=== PATIENT | female | born 1965 | race Caucasian/White ===

== ENCOUNTER 2020-04-27 12:22 | Inpatient (IN) | payer MEDICAID ==
[~2020-04-27] VITALS: Ht 165.1 cm; Wt 89.0 kg
[2020-04-27] MEDS ORDERED: NOREPINEPHRINE 8MG/250ML PMX 250 ML IV ONE (13:00)
[2020-04-27] MEDS ORDERED: MIDAZOLAM HCL 100 MG in DEXT 5% WATER 80 ML IV ONE ×2 (13:00→13:30)
[2020-04-27] MEDS ORDERED: SODIUM CHLORIDE 0.9% 1,000 ML IV ONE (13:00)
[2020-04-27] MEDS ORDERED: ETOMIDATE 2MG/ML 10ML VIAL IV ONE ×2 (13:00)
[2020-04-27] MEDS ORDERED: SUCCINYLCHOLINE CHLORIDE 200MG/10ML IV ONE (13:00)
[2020-04-27 13:07] LABS: HEMATOCRIT. 39.9 % (36.0-48.0); HEMOGLOBIN. 13.3 g/dL (12.0-16.0); MEAN CORPUSCULAR HEMOGLOBIN 31.8 pg (28.0-32.0); MEAN CORPUSCULAR VOLUME 95.3 fL (81.0-99.0); MEAN PLATELET VOLUME 8.2 fl (7.4-10.4); PLATELET 366 x1000/uL (130-400); RED BLOOD CELL COUNT 4.19 mill/uL (4.2-5.4); RED CELL DISTRIBUTION WIDTH 13.9 % (11.6-14.6)
[2020-04-27 13:14] LABS: CHLORIDE 108 mEq/L (98-107)
[2020-04-27 13:22] LABS: CREATINE KINASE 722 IU/L (26-192)
[2020-04-27] MEDS ORDERED: NOREPINEPHRINE 8 MG in DEXTROSE 5% WATER 250 ML IV ONE (13:30)
[2020-04-27 13:53] LABS: PLATELET ESTIMATE NORMAL
[2020-04-27] MEDS ORDERED: NITROGLYCERIN OINT 1GM/INCH UDPKT TD NR (14:30)
[2020-04-27] MEDS ORDERED: FUROSEMIDE 40MG/4ML VIAL IVP NR (14:30)
[2020-04-27] MEDS ORDERED: ASPIRIN 600MG SUPP PR ONE (15:45)
[2020-04-27] MEDS ORDERED: PIPERACILLIN/TAZOBACTAM 3.375GM/50ML PREMIX IV ONE (16:00)
[2020-04-27 16:08] LABS: INR 1.1; PROTHROMBIN TIME 11.4 sec (9.6-11.0)
[2020-04-27] MEDS ORDERED: PIPERACILLIN/TAZ 3.375G PREMIX 50 ML IV NR (17:00)
[2020-04-27] MEDS ORDERED: ENOXAPARIN 60MG/0.6ML SYR SUBCUT NR (17:00)
[2020-04-27] MEDS ORDERED: PANTOPRAZOLE SODIUM 40 MG/VIAL IV ONE (18:00)
[2020-04-27] MEDS ORDERED: CEFTRIAXONE 1 G PREMIX 50 ML IV NR (18:45)
[2020-04-27] MEDS ORDERED: ONDANSETRON HCL 4MG/2ML INJ IV PRN (18:45)
[2020-04-27] MEDS ORDERED: AZITHROMYCIN 500 MG in DEXT 5% WATER 250 ML IV NR (18:45)
[2020-04-27 18:53] LABS: CLARITY URINE TURBID (CLEAR); COLOR URINE ORANGE (YELLOW); KETONES URINE TRACE (NEGATIVE); LEUKOCYTE ESTERASE URINE 2+ (NEGATIVE); NITRITE URINE NEGATIVE (NEGATIVE); OCCULT BLOOD URINE 3+ (NEGATIVE); PROTEIN URINE 3+ (NEGATIVE); SPECIFIC GRAVITY URINE 1.019 (1.005-1.030)
[2020-04-27] MEDS ORDERED: MIDAZOLAM HCL 100 MG in DEXT 5% WATER 80 ML IV PRN (21:15)
[2020-04-27] MEDS ORDERED: FENTANYL CITRATE/PF 2,500 MCG in SODIUM CHLORIDE 0.9% 200 ML IV PRN (21:15)
[2020-04-27] MEDS ORDERED: IPRATROPIUM/ALBUTEROL 0.5-3(2.5)MG/3ML NEB HHN PRN (21:15)
[2020-04-28 00:15] LABS: BG BASE EXCESS -4.6 mmol/L (-2.0-2.0); BG CARBOXYHEMOGLOBIN 0.3 % (0.5-1.5); BG DEOXYHEMOGLOBIN 2.3 % (0.0-5.0); BG FRACTION INSPIRED OXYGEN 100; BG HCO3 ACT 18.6 mmol/L (22.0-26.0); BG METHEMOGLOBIN 0.2 % (0.0-1.5); BG OXYGEN SATURATION 97.7 % (92.0-98.5); BG OXYHEMOGLOBIN 97.2 % (94.0-97.0); BG PCO2 29.2 mmHg (35.0-45.0); BG PH 7.423 (7.350-7.450); BG PO2 117.3 mmHg (75.0-100.0); BG SAMPLE SITE LEFT RADIAL; BG VENT MODE VENT - AC
[2020-04-28] MEDS: DEXAMETHASONE 10 MG/ML VIAL IV SCH ×2 (00:21→11:25)
[2020-04-28] MEDS: PANTOPRAZOLE SODIUM 40 MG/VIAL IV SCH ×2 (00:21→22:04)
[2020-04-28] MEDS ORDERED: MIDAZOLAM HCL 100 MG in DEXT 5% WATER 80 ML IV PRN (03:00)
[2020-04-28 05:16] LABS: HEMATOCRIT. 37.9 % (36.0-48.0); HEMOGLOBIN. 12.8 g/dL (12.0-16.0); MEAN CORPUSCULAR HEMOGLOBIN 31.1 pg (28.0-32.0); MEAN CORPUSCULAR VOLUME 92.4 fL (81.0-99.0); MEAN PLATELET VOLUME 8.5 fl (7.4-10.4); PLATELET 302 x1000/uL (130-400); RED CELL DISTRIBUTION WIDTH 13.7 % (11.6-14.6)
[2020-04-28 05:20] LABS: CHLORIDE 110 mEq/L (98-107)
[2020-04-28 05:32] LABS: LDL CHOLESTEROL 90 mg/dL (5-100)
[2020-04-28 05:33] LABS: CREATINE KINASE 863 IU/L (26-192)
[2020-04-28 05:34] LABS: HDL CHOLESTEROL 42 mg/dL (40-59)
[2020-04-28 08:46] LABS: BG BASE EXCESS 7.6 mmol/L (-2.0-2.0); BG CARBOXYHEMOGLOBIN 0.8 % (0.5-1.5); BG DEOXYHEMOGLOBIN 1.4 % (0.0-5.0); BG FRACTION INSPIRED OXYGEN 100; BG HCO3 ACT 31.6 mmol/L (22.0-26.0); BG METHEMOGLOBIN 0.1 % (0.0-1.5); BG OXYGEN SATURATION 98.6 % (92.0-98.5); BG OXYHEMOGLOBIN 97.7 % (94.0-97.0); BG PCO2 41.8 mmHg (35.0-45.0); BG PH 7.496 (7.350-7.450); BG PO2 123.6 mmHg (75.0-100.0); BG SAMPLE SITE RIGHT RADIAL; BG TOTAL HEMOGLOBIN 8.5 g/dL (12.0-18.0); BG VENT MODE VENT - AC
[2020-04-28 08:52] LABS: C REACTIVE PROTEIN QUANT > 190.0 mg/L (0.0-3.0)
[2020-04-28] MEDS: IPRATROPIUM/ALBUTEROL 0.5-3(2.5)MG/3ML NEB HHN SCH ×4 (09:00→20:29)
[2020-04-28] MEDS ORDERED: FUROSEMIDE 40MG/4ML VIAL IVP NR (09:30)
[2020-04-28 11:04] LABS: PLATELET ESTIMATE NORMAL
[2020-04-28] MEDS: DEXT 5%/0.45% NACL 1000ML 1,000 ML IV SCH ×2 (11:26→12:05)
[2020-04-28] MEDS ORDERED: ENOXAPARIN 60MG/0.6ML SYR SUBCUT SCH (14:00)
[2020-04-28] MEDS: CEFTRIAXONE 1,000 MG in DEXTROSE 5% WATER 50 ML IV SCH (14:25)
[2020-04-28] MEDS: AZITHROMYCIN 500MG in DEXTROSE 5% WATER 250ML IV SCH (14:26)
[2020-04-29] MEDS: IPRATROPIUM/ALBUTEROL 0.5-3(2.5)MG/3ML NEB HHN SCH ×6 (00:43→20:52)
[2020-04-29 06:09] LABS: HEMATOCRIT. 33.1 % (36.0-48.0); HEMOGLOBIN. 11.6 g/dL (12.0-16.0); MEAN CORPUSCULAR VOLUME 91.7 fL (81.0-99.0); PLATELET 283 x1000/uL (130-400); RED BLOOD CELL COUNT 3.61 mill/uL (4.2-5.4); RED CELL DISTRIBUTION WIDTH 13.3 % (11.6-14.6)
[2020-04-29 06:12] LABS: CHLORIDE 109 mEq/L (98-107)
[2020-04-29] MEDS: DEXT 5%/0.45% NACL 1000ML 1,000 ML IV SCH (08:00)
[2020-04-29 08:22] LABS: NUCLEATED RED BLOOD CELLS 4 /100 WBC; PLATELET ESTIMATE NORMAL
[2020-04-29 11:04] LABS: BG BASE EXCESS 0.9 mmol/L (-2.0-2.0); BG CARBOXYHEMOGLOBIN 0.1 % (0.5-1.5); BG DEOXYHEMOGLOBIN 3.2 % (0.0-5.0); BG FRACTION INSPIRED OXYGEN 80; BG HCO3 ACT 24.3 mmol/L (22.0-26.0); BG METHEMOGLOBIN 0.2 % (0.0-1.5); BG OXYGEN SATURATION 96.8 % (92.0-98.5); BG OXYHEMOGLOBIN 96.5 % (94.0-97.0); BG PO2 92.4 mmHg (75.0-100.0); BG SAMPLE SITE RIGHT RADIAL; BG TOTAL HEMOGLOBIN 12.6 g/dL (12.0-18.0); BG TOTAL RESPIRATORY RATE 28 b/min; BG VENT MODE VENT - AC
[2020-04-29] MEDS: ASPIRIN 81MG TABLET PO SCH (11:39)
[2020-04-29] MEDS ORDERED: CEFTRIAXONE SODIUM 1 G/VIAL ONE (15:08)
[2020-04-29] MEDS: DEXAMETHASONE 10 MG/ML VIAL IV SCH (15:09)
[2020-04-29] MEDS: CEFTRIAXONE 1,000 MG in DEXTROSE 5% WATER 50 ML IV SCH (15:09)
[2020-04-29] MEDS: ENOXAPARIN 60MG/0.6ML SYR SUBCUT SCH (19:36)
[2020-04-29] MEDS: PANTOPRAZOLE SODIUM 40 MG/VIAL IV SCH (21:00)
[2020-04-30] VITALS (58 sets, daily range): BP systolic 115–156; BP diastolic 69–142
[2020-04-30] MEDS: IPRATROPIUM/ALBUTEROL 0.5-3(2.5)MG/3ML NEB HHN SCH ×6 (00:16→20:34)
[2020-04-30] MEDS: DEXT 5%/0.45% NACL 1000ML 1,000 ML IV SCH ×2 (00:30→15:44)
[2020-04-30 06:17] LABS: HEMATOCRIT. 32.7 % (36.0-48.0); HEMOGLOBIN. 11.3 g/dL (12.0-16.0); MEAN CORPUSCULAR HEMOGLOBIN 31.8 pg (28.0-32.0); MEAN CORPUSCULAR VOLUME 92.4 fL (81.0-99.0); MEAN PLATELET VOLUME 8.7 fl (7.4-10.4); PLATELET 303 x1000/uL (130-400); RED BLOOD CELL COUNT 3.54 mill/uL (4.2-5.4); RED CELL DISTRIBUTION WIDTH 13.6 % (11.6-14.6)
[2020-04-30 06:22] LABS: CHLORIDE 110 mEq/L (98-107)
[2020-04-30 08:44] LABS: PLATELET ESTIMATE NORMAL
[2020-04-30] MEDS: ASPIRIN 81MG TABLET PO SCH (09:00)
[2020-04-30] MEDS: ENOXAPARIN 60MG/0.6ML SYR SUBCUT SCH (09:06)
[2020-04-30] MEDS: DEXAMETHASONE 10 MG/ML VIAL IV SCH (09:06)
[2020-04-30 09:28] LABS: BG BASE EXCESS -1.7 mmol/L (-2.0-2.0); BG CARBOXYHEMOGLOBIN 0.3 % (0.5-1.5); BG DEOXYHEMOGLOBIN 2.3 % (0.0-5.0); BG FRACTION INSPIRED OXYGEN 70; BG HCO3 ACT 22.2 mmol/L (22.0-26.0); BG METHEMOGLOBIN 0.2 % (0.0-1.5); BG OXYGEN SATURATION 97.7 % (92.0-98.5); BG OXYHEMOGLOBIN 97.2 % (94.0-97.0); BG PCO2 34.8 mmHg (35.0-45.0); BG PH 7.423 (7.350-7.450); BG PO2 110.7 mmHg (75.0-100.0); BG SAMPLE SITE RIGHT RADIAL; BG TOTAL HEMOGLOBIN 11.6 g/dL (12.0-18.0); BG VENT MODE VENT - AC
[2020-04-30] MEDS: CEFTRIAXONE 1,000 MG in DEXTROSE 5% WATER 50 ML IV SCH (14:51)
[2020-04-30] MEDS: ENOXAPARIN 100MG/ML SYR SUBCUT SCH (15:44)
[2020-04-30] MEDS: PANTOPRAZOLE SODIUM 40 MG/VIAL IV SCH (20:37)
[2020-04-30] MEDS: AZITHROMYCIN 500MG in DEXTROSE 5% WATER 250ML IV SCH (23:23)
[2020-05-01] VITALS (80 sets, daily range): BP systolic 111–143; BP diastolic 66–93
[2020-05-01] MEDS: IPRATROPIUM/ALBUTEROL 0.5-3(2.5)MG/3ML NEB HHN SCH ×6 (00:17→20:16)
[2020-05-01] MEDS: ENOXAPARIN 100MG/ML SYR SUBCUT SCH ×2 (01:18→14:29)
[2020-05-01 05:16] LABS: HEMATOCRIT. 35.1 % (36.0-48.0); HEMOGLOBIN. 11.8 g/dL (12.0-16.0); MEAN CORPUSCULAR HEMOGLOBIN 31.7 pg (28.0-32.0); MEAN CORPUSCULAR VOLUME 94.2 fL (81.0-99.0); MEAN PLATELET VOLUME 8.4 fl (7.4-10.4); PLATELET 321 x1000/uL (130-400); RED BLOOD CELL COUNT 3.72 mill/uL (4.2-5.4); RED CELL DISTRIBUTION WIDTH 13.6 % (11.6-14.6)
[2020-05-01 05:32] LABS: CHLORIDE 109 mEq/L (98-107)
[2020-05-01] MEDS: DEXT 5%/0.45% NACL 1000ML 1,000 ML IV SCH ×2 (06:01→22:31)
[2020-05-01 08:00] LABS: PLATELET ESTIMATE NORMAL
[2020-05-01] MEDS: ASPIRIN 81MG TABLET PO SCH (09:20)
[2020-05-01] MEDS: DEXAMETHASONE 10 MG/ML VIAL IV SCH (09:20)
[2020-05-01 09:22] LABS: BG BASE EXCESS -0.5 mmol/L (-2.0-2.0); BG CARBOXYHEMOGLOBIN 0.3 % (0.5-1.5); BG DEOXYHEMOGLOBIN 1.6 % (0.0-5.0); BG FRACTION INSPIRED OXYGEN 65; BG HCO3 ACT 24.1 mmol/L (22.0-26.0); BG METHEMOGLOBIN 0.3 % (0.0-1.5); BG OXYGEN SATURATION 98.4 % (92.0-98.5); BG OXYHEMOGLOBIN 97.8 % (94.0-97.0); BG PCO2 39.5 mmHg (35.0-45.0); BG PH 7.403 (7.350-7.450); BG PO2 170.9 mmHg (75.0-100.0); BG SAMPLE SITE RIGHT RADIAL; BG TOTAL HEMOGLOBIN 11.7 g/dL (12.0-18.0); BG TOTAL RESPIRATORY RATE 21 b/min; BG VENT MODE VENT - AC
[2020-05-01] MEDS ORDERED: FLUMAZENIL 0.1 MG/ML 5ML VIAL IV NR ×2 (12:00→12:28)
[2020-05-01] MEDS ORDERED: FLUMAZENIL 0.1 MG/ML 5ML VIAL IV PRN (12:30)
[2020-05-01] MEDS: CEFTRIAXONE 1,000 MG in DEXTROSE 5% WATER 50 ML IV SCH (12:34)
[2020-05-01] MEDS: AZITHROMYCIN 500MG in DEXTROSE 5% WATER 250ML IV SCH (15:30)
[2020-05-01] MEDS: FENTANYL CITRATE 2,500 MCG in SODIUM CHLORIDE 0.9% 200 ML IV PRN (16:42)
[2020-05-01] MEDS: PANTOPRAZOLE SODIUM 40 MG/VIAL IV SCH (21:09)
[2020-05-02] VITALS (95 sets, daily range): BP systolic 109–150; BP diastolic 55–107
[2020-05-02] MEDS: IPRATROPIUM/ALBUTEROL 0.5-3(2.5)MG/3ML NEB HHN SCH ×7 (00:09→23:59)
[2020-05-02] MEDS: ENOXAPARIN 100MG/ML SYR SUBCUT SCH ×2 (02:56→13:32)
[2020-05-02 04:52] LABS: HEMATOCRIT. 33.6 % (36.0-48.0); HEMOGLOBIN. 11.5 g/dL (12.0-16.0); MEAN CORPUSCULAR HEMOGLOBIN 31.9 pg (28.0-32.0); MEAN CORPUSCULAR VOLUME 93.6 fL (81.0-99.0); MEAN PLATELET VOLUME 8.6 fl (7.4-10.4); PLATELET 332 x1000/uL (130-400); RED BLOOD CELL COUNT 3.59 mill/uL (4.2-5.4); RED CELL DISTRIBUTION WIDTH 13.5 % (11.6-14.6)
[2020-05-02 04:56] LABS: CHLORIDE 108 mEq/L (98-107)
[2020-05-02] MEDS: ASPIRIN 81MG TABLET PO SCH (09:01)
[2020-05-02] MEDS: DEXAMETHASONE 10 MG/ML VIAL IV SCH (09:01)
[2020-05-02] MEDS: CHOLECALCIFEROL (D3) 1000 UNIT TABLET PO SCH (09:01)
[2020-05-02 09:09] LABS: BG BASE EXCESS 1.4 mmol/L (-2.0-2.0); BG CARBOXYHEMOGLOBIN 0.3 % (0.5-1.5); BG FRACTION INSPIRED OXYGEN 50; BG METHEMOGLOBIN 0.1 % (0.0-1.5); BG OXYHEMOGLOBIN 97.6 % (94.0-97.0); BG PO2 124.5 mmHg (75.0-100.0); BG SAMPLE SITE LEFT RADIAL; BG TOTAL HEMOGLOBIN 11.8 g/dL (12.0-18.0); BG VENT MODE VENT - AC
[2020-05-02] MEDS: CEFTRIAXONE 1,000 MG in DEXTROSE 5% WATER 50 ML IV SCH (13:32)
[2020-05-02 13:49] LABS: PLATELET ESTIMATE NORMAL
[2020-05-02] MEDS: DEXT 5%/0.45% NACL 1000ML 1,000 ML IV SCH (15:07)
[2020-05-02] MEDS: PANTOPRAZOLE SODIUM 40 MG/VIAL IV SCH (21:02)
[2020-05-02] MEDS: FENTANYL CITRATE 2,500 MCG in SODIUM CHLORIDE 0.9% 200 ML IV PRN (22:11)
[2020-05-03] VITALS (95 sets, daily range): BP systolic 102–127; BP diastolic 53–84
[2020-05-03] MEDS: ENOXAPARIN 100MG/ML SYR SUBCUT SCH (02:06)
[2020-05-03] MEDS: IPRATROPIUM/ALBUTEROL 0.5-3(2.5)MG/3ML NEB HHN SCH ×5 (04:14→20:22)
[2020-05-03 05:21] LABS: HEMATOCRIT. 34.2 % (36.0-48.0); HEMOGLOBIN. 11.5 g/dL (12.0-16.0); MEAN CORPUSCULAR HEMOGLOBIN 31.3 pg (28.0-32.0); MEAN PLATELET VOLUME 8.3 fl (7.4-10.4); PLATELET 357 x1000/uL (130-400); RED BLOOD CELL COUNT 3.68 mill/uL (4.2-5.4); RED CELL DISTRIBUTION WIDTH 13.1 % (11.6-14.6)
[2020-05-03 05:26] LABS: CHLORIDE 103 mEq/L (98-107)
[2020-05-03] MEDS: DEXT 5%/0.45% NACL 1000ML 1,000 ML IV SCH (08:05)
[2020-05-03] MEDS: ASPIRIN 81MG TABLET PO SCH (09:20)
[2020-05-03] MEDS: DEXAMETHASONE 10 MG/ML VIAL IV SCH (10:24)
[2020-05-03] MEDS: CHOLECALCIFEROL (D3) 1000 UNIT TABLET PO SCH (10:25)
[2020-05-03 10:27] LABS: PLATELET ESTIMATE NORMAL
[2020-05-03] MEDS: PANTOPRAZOLE SODIUM 40 MG/VIAL IV SCH (21:14)
[2020-05-03] MEDS: FENTANYL CITRATE 2,500 MCG in SODIUM CHLORIDE 0.9% 200 ML IV PRN (21:43)
[2020-05-04] VITALS (89 sets, daily range): BP systolic 105–147; BP diastolic 57–102
[2020-05-04] MEDS: IPRATROPIUM/ALBUTEROL 0.5-3(2.5)MG/3ML NEB HHN SCH ×6 (00:22→20:40)
[2020-05-04] MEDS: DEXT 5%/0.45% NACL 1000ML 1,000 ML IV SCH ×2 (01:36→18:26)
[2020-05-04] MEDS: ENOXAPARIN 100MG/ML SYR SUBCUT SCH ×2 (02:20→14:27)
[2020-05-04 04:28] LABS: HEMATOCRIT. 33.9 % (36.0-48.0); HEMOGLOBIN. 11.8 g/dL (12.0-16.0); MEAN CORPUSCULAR HEMOGLOBIN 32.1 pg (28.0-32.0); MEAN CORPUSCULAR VOLUME 92.4 fL (81.0-99.0); MEAN PLATELET VOLUME 8.3 fl (7.4-10.4); PLATELET 385 x1000/uL (130-400); RED BLOOD CELL COUNT 3.66 mill/uL (4.2-5.4); RED CELL DISTRIBUTION WIDTH 13.2 % (11.6-14.6)
[2020-05-04 04:33] LABS: CHLORIDE 101 mEq/L (98-107)
[2020-05-04] MEDS: FENTANYL CITRATE 2,500 MCG in SODIUM CHLORIDE 0.9% 200 ML IV PRN ×3 (06:03→18:27)
[2020-05-04] MEDS: DEXAMETHASONE 10 MG/ML VIAL IV SCH (09:05)
[2020-05-04] MEDS: CHOLECALCIFEROL (D3) 1000 UNIT TABLET PO SCH (09:05)
[2020-05-04] MEDS: ASPIRIN 81MG TABLET PO SCH (09:05)
[2020-05-04 09:54] LABS: BG BASE EXCESS 7.3 mmol/L (-2.0-2.0); BG CARBOXYHEMOGLOBIN 0.4 % (0.5-1.5); BG DEOXYHEMOGLOBIN 2.1 % (0.0-5.0); BG FRACTION INSPIRED OXYGEN 40; BG HCO3 ACT 33.1 mmol/L (22.0-26.0); BG METHEMOGLOBIN 0.3 % (0.0-1.5); BG OXYGEN SATURATION 97.9 % (92.0-98.5); BG OXYHEMOGLOBIN 97.2 % (94.0-97.0); BG PCO2 52.7 mmHg (35.0-45.0); BG PH 7.416 (7.350-7.450); BG PO2 104.9 mmHg (75.0-100.0); BG SAMPLE SITE RIGHT RADIAL; BG TOTAL HEMOGLOBIN 11.9 g/dL (12.0-18.0); BG TOTAL RESPIRATORY RATE 13 b/min; BG VENT MODE VENT - AC
[2020-05-04 12:19] LABS: NUCLEATED RED BLOOD CELLS 2 /100 WBC
[2020-05-04 12:20] LABS: PLATELET ESTIMATE NORMAL
[2020-05-04] MEDS: PANTOPRAZOLE SODIUM 40 MG/VIAL IV SCH (21:05)
[2020-05-05] VITALS (44 sets, daily range): BP systolic 97–154; BP diastolic 52–100
[2020-05-05] MEDS: IPRATROPIUM/ALBUTEROL 0.5-3(2.5)MG/3ML NEB HHN SCH ×4 (00:21→20:34)
[2020-05-05] MEDS: ENOXAPARIN 100MG/ML SYR SUBCUT SCH ×3 (01:19→23:14)
[2020-05-05] MEDS: FENTANYL CITRATE 2,500 MCG in SODIUM CHLORIDE 0.9% 200 ML IV PRN ×2 (03:38→19:32)
[2020-05-05 08:53] LABS: BG BASE EXCESS 5.2 mmol/L (-2.0-2.0); BG CARBOXYHEMOGLOBIN 0.3 % (0.5-1.5); BG DEOXYHEMOGLOBIN 2.1 % (0.0-5.0); BG FRACTION INSPIRED OXYGEN 40; BG HCO3 ACT 30.4 mmol/L (22.0-26.0); BG METHEMOGLOBIN 0.3 % (0.0-1.5); BG OXYGEN SATURATION 97.9 % (92.0-98.5); BG OXYHEMOGLOBIN 97.3 % (94.0-97.0); BG PCO2 46.8 mmHg (35.0-45.0); BG PO2 109.3 mmHg (75.0-100.0); BG SAMPLE SITE RIGHT RADIAL; BG TOTAL HEMOGLOBIN 12.5 g/dL (12.0-18.0); BG TOTAL RESPIRATORY RATE 14 b/min; BG VENT MODE VENT - AC
[2020-05-05] MEDS: DEXAMETHASONE 10 MG/ML VIAL IV SCH (09:36)
[2020-05-05] MEDS: CHOLECALCIFEROL (D3) 1000 UNIT TABLET PO SCH (09:36)
[2020-05-05] MEDS: ASPIRIN 81MG TABLET PO SCH (09:36)
[2020-05-05] MEDS: DEXT 5%/0.45% NACL 1000ML 1,000 ML IV SCH (09:37)
[2020-05-05] MEDS ORDERED: LORAZEPAM 2MG/ML CPJ IV PRN (12:00)
[2020-05-05 13:25] LABS: BG BASE EXCESS 6.5 mmol/L (-2.0-2.0); BG CARBOXYHEMOGLOBIN 0.7 % (0.5-1.5); BG DEOXYHEMOGLOBIN 4.1 % (0.0-5.0); BG FRACTION INSPIRED OXYGEN 40; BG HCO3 ACT 30.6 mmol/L (22.0-26.0); BG METHEMOGLOBIN 0.2 % (0.0-1.5); BG OXYGEN SATURATION 95.9 % (92.0-98.5); BG PCO2 41.5 mmHg (35.0-45.0); BG PH 7.485 (7.350-7.450); BG PO2 74.2 mmHg (75.0-100.0); BG SAMPLE SITE LEFT RADIAL; BG TOTAL HEMOGLOBIN 13.4 g/dL (12.0-18.0); BG TOTAL RESPIRATORY RATE 25 b/min; BG VENT MODE VENT - CPAP
[2020-05-05] MEDS: PANTOPRAZOLE SODIUM 40 MG/VIAL IV SCH (20:51)
[2020-05-06] VITALS (58 sets, daily range): BP systolic 89–141; BP diastolic 51–87
[2020-05-06] MEDS: IPRATROPIUM/ALBUTEROL 0.5-3(2.5)MG/3ML NEB HHN SCH ×3 (00:14→07:48)
[2020-05-06] MEDS ORDERED: LORAZEPAM 2MG/ML CPJ IV PRN (08:30)
[2020-05-06] MEDS ORDERED: LORAZEPAM 2MG/ML CPJ IV NR (08:45)
[2020-05-06] MEDS: ENOXAPARIN 100MG/ML SYR SUBCUT SCH ×2 (09:00→21:04)
[2020-05-06] MEDS: ASPIRIN 81MG TABLET PO SCH (09:00)
[2020-05-06] MEDS: CHOLECALCIFEROL (D3) 1000 UNIT TABLET PO SCH (09:00)
[2020-05-06 10:07] LABS: BG BASE EXCESS 4.7 mmol/L (-2.0-2.0); BG CARBOXYHEMOGLOBIN 0.1 % (0.5-1.5); BG DEOXYHEMOGLOBIN 3.2 % (0.0-5.0); BG FRACTION INSPIRED OXYGEN 40; BG HCO3 ACT 27.3 mmol/L (22.0-26.0); BG METHEMOGLOBIN 0.3 % (0.0-1.5); BG OXYGEN SATURATION 96.8 % (92.0-98.5); BG OXYHEMOGLOBIN 96.4 % (94.0-97.0); BG PCO2 33.9 mmHg (35.0-45.0); BG PH 7.524 (7.350-7.450); BG SAMPLE SITE LEFT RADIAL; BG TOTAL RESPIRATORY RATE 25 b/min; BG VENT MODE VENT - CPAP
[2020-05-06] MEDS: ALBUTEROL 6.7GM HFA INHALER ORI PRN ×2 (15:32→20:41)
[2020-05-06] MEDS: PANTOPRAZOLE SODIUM 40 MG/VIAL IV SCH (20:39)
[2020-05-06] MEDS: DEXT 5%/0.45% NACL 1000ML 1,000 ML IV SCH (21:04)
[2020-05-07] VITALS (20 sets, daily range): BP systolic 93–116; BP diastolic 50–72
[2020-05-07] MEDS: ALBUTEROL 6.7GM HFA INHALER ORI PRN ×3 (00:13→19:36)
[2020-05-07 06:02] LABS: HEMATOCRIT. 33.5 % (36.0-48.0); HEMOGLOBIN. 11.5 g/dL (12.0-16.0); MEAN CORPUSCULAR HEMOGLOBIN 31.7 pg (28.0-32.0); MEAN CORPUSCULAR VOLUME 92.9 fL (81.0-99.0); MEAN PLATELET VOLUME 8.2 fl (7.4-10.4); PLATELET 405 x1000/uL (130-400); RED BLOOD CELL COUNT 3.61 mill/uL (4.2-5.4); RED CELL DISTRIBUTION WIDTH 13.8 % (11.6-14.6)
[2020-05-07 06:05] LABS: CHLORIDE 104 mEq/L (98-107)
[2020-05-07] MEDS: ASPIRIN 81MG TABLET PO SCH (09:00)
[2020-05-07] MEDS: CHOLECALCIFEROL (D3) 1000 UNIT TABLET PO SCH (09:00)
[2020-05-07] MEDS: ENOXAPARIN 100MG/ML SYR SUBCUT SCH ×2 (09:00→21:59)
[2020-05-07 09:34] LABS: PLATELET ESTIMATE NORMAL
[2020-05-07] MEDS: PANTOPRAZOLE SODIUM 40 MG/VIAL IV SCH (21:59)
[2020-05-07] MEDS: DEXT 5%/0.45% NACL 1000ML 1,000 ML IV SCH (22:01)
[2020-05-08] VITALS (14 sets, daily range): BP systolic 89–118; BP diastolic 53–66
[2020-05-08] MEDS: CHOLECALCIFEROL (D3) 1000 UNIT TABLET PO SCH (09:10)
[2020-05-08] MEDS: ENOXAPARIN 100MG/ML SYR SUBCUT SCH ×2 (09:10→20:55)
[2020-05-08] MEDS: ASPIRIN 81MG TABLET PO SCH (09:10)
[2020-05-08] MEDS: PANTOPRAZOLE SODIUM 40 MG/VIAL IV SCH (20:54)
[2020-05-08] MEDS: DEXT 5%/0.45% NACL 1000ML 1,000 ML IV SCH (21:25)
[2020-05-09] VITALS: BP 103/54
[2020-05-09 04:00] VITALS: BP 108/60
[2020-05-09 08:00] VITALS: BP 104/56
[2020-05-09] MEDS: CHOLECALCIFEROL (D3) 1000 UNIT TABLET PO SCH (08:39)
[2020-05-09] MEDS: ENOXAPARIN 100MG/ML SYR SUBCUT SCH ×2 (08:39→21:02)
[2020-05-09] MEDS: ASPIRIN 81MG TABLET PO SCH (08:39)
[2020-05-09 12:00] VITALS: BP 101/62
[2020-05-09 16:00] VITALS: BP 110/68
[2020-05-09] MEDS: DEXT 5%/0.45% NACL 1000ML 1,000 ML IV SCH (16:11)
[2020-05-09 20:00] VITALS: BP 127/63
[2020-05-09] MEDS: PANTOPRAZOLE SODIUM 40 MG/VIAL IV SCH (21:03)
[2020-05-10] VITALS: BP 113/69
[2020-05-10 04:00] VITALS: BP 116/65
[2020-05-10 08:00] VITALS: BP 105/55
[2020-05-10] MEDS: ENOXAPARIN 100MG/ML SYR SUBCUT SCH ×2 (08:18→20:38)
[2020-05-10] MEDS: DEXT 5%/0.45% NACL 1000ML 1,000 ML IV SCH ×2 (08:18→23:25)
[2020-05-10] MEDS: ASPIRIN 81MG TABLET PO SCH (08:18)
[2020-05-10] MEDS: CHOLECALCIFEROL (D3) 1000 UNIT TABLET PO SCH (08:18)
[2020-05-10 12:00] VITALS: BP 105/53
[2020-05-10 16:00] VITALS: BP 109/56
[2020-05-10 20:00] VITALS: BP 109/73
[2020-05-10] MEDS: ACETAMINOPHEN 325MG TABLET PO PRN (20:55)
[2020-05-10] MEDS: PANTOPRAZOLE SODIUM 40 MG/VIAL IV SCH (20:55)
[2020-05-11] VITALS: BP 108/68
[2020-05-11 04:00] VITALS: BP 110/66
[2020-05-11 08:00] VITALS: BP 109/65
[2020-05-11] MEDS: ASPIRIN 81MG TABLET PO SCH (08:50)
[2020-05-11] MEDS: CHOLECALCIFEROL (D3) 1000 UNIT TABLET PO SCH (08:50)
[2020-05-11] MEDS: ENOXAPARIN 100MG/ML SYR SUBCUT SCH ×3 (08:50→22:24)
[2020-05-11 12:00] VITALS: BP 129/64
[2020-05-11 16:00] VITALS: BP 130/79
[2020-05-11 20:00] VITALS: BP 113/67
[2020-05-11] MEDS: PANTOPRAZOLE SODIUM 40 MG/VIAL IV SCH (22:25)
[2020-05-12] VITALS (7 sets, daily range): BP systolic 107–154; BP diastolic 60–84
[2020-05-12] MEDS: CHOLECALCIFEROL (D3) 1000 UNIT TABLET PO SCH (10:13)
[2020-05-12] MEDS: ASPIRIN 81MG TABLET PO SCH (10:13)
[2020-05-12] MEDS: ENOXAPARIN 100MG/ML SYR SUBCUT SCH ×2 (10:16→21:37)
[2020-05-12] MEDS: PANTOPRAZOLE SODIUM 40 MG/VIAL IV SCH (21:37)
[2020-05-13] VITALS (8 sets, daily range): BP systolic 100–129; BP diastolic 65–85
[2020-05-13] MEDS: DEXT 5%/0.45% NACL 1000ML 1,000 ML IV SCH (00:29)
[2020-05-13] MEDS: ASPIRIN 81MG TABLET PO SCH (08:35)
[2020-05-13] MEDS: ENOXAPARIN 100MG/ML SYR SUBCUT SCH ×2 (08:35→21:39)
[2020-05-13] MEDS: CHOLECALCIFEROL (D3) 1000 UNIT TABLET PO SCH (08:35)
[2020-05-13 11:58] LABS: BG BASE EXCESS 1.6 mmol/L (-2.0-2.0); BG CARBOXYHEMOGLOBIN 0.5 % (0.5-1.5); BG FRACTION INSPIRED OXYGEN 36; BG HCO3 ACT 25.3 mmol/L (22.0-26.0); BG METHEMOGLOBIN 0.2 % (0.0-1.5); BG OXYHEMOGLOBIN 93.3 % (94.0-97.0); BG PCO2 36.5 mmHg (35.0-45.0); BG PH 7.458 (7.350-7.450); BG PO2 67.5 mmHg (75.0-100.0); BG SAMPLE SITE LEFT RADIAL; BG TOTAL HEMOGLOBIN 13.2 g/dL (12.0-18.0); BG VENT MODE NASAL CANNULA
[2020-05-13] MEDS: PANTOPRAZOLE SODIUM 40 MG/VIAL IV SCH (21:38)
[2020-05-14] VITALS (8 sets, daily range): BP systolic 101–129; BP diastolic 58–82
[2020-05-14 07:33] LABS: HEMATOCRIT 37.4 % (36.0-48.0); HEMOGLOBIN 12.7 g/dL (12.0-16.0); MEAN CORPUSCULAR HEMOGLOBIN 31.6 pg (28.0-32.0); MEAN CORPUSCULAR VOLUME 93.4 fL (81.0-99.0); PLATELET 300 x1000/uL (130-400); RED BLOOD CELL COUNT 4.01 mill/uL (4.2-5.4); RED CELL DISTRIBUTION WIDTH 14.2 % (11.6-14.6)
[2020-05-14 07:50] LABS: CHLORIDE 108 mEq/L (98-107)
[2020-05-14] MEDS: ASPIRIN 81MG TABLET PO SCH (10:07)
[2020-05-14] MEDS: CHOLECALCIFEROL (D3) 1000 UNIT TABLET PO SCH (10:08)
[2020-05-14] MEDS: ENOXAPARIN 100MG/ML SYR SUBCUT SCH ×2 (10:08→21:06)
[2020-05-14] MEDS: PANTOPRAZOLE SODIUM 40 MG/VIAL IV SCH (21:05)
[2020-05-14] MEDS: DEXT 5%/0.45% NACL 1000ML 1,000 ML IV SCH (21:12)
[2020-05-15] VITALS: BP 111/64
[2020-05-15] MEDS: DEXT 5%/0.45% NACL 1000ML 1,000 ML IV SCH ×2 (02:56→14:12)
[2020-05-15 03:46] VITALS: BP 124/74
[2020-05-15 07:59] VITALS: BP 133/72
[2020-05-15] MEDS: ASPIRIN 81MG TABLET PO SCH (08:35)
[2020-05-15] MEDS: CHOLECALCIFEROL (D3) 1000 UNIT TABLET PO SCH (08:35)
[2020-05-15] MEDS: ENOXAPARIN 100MG/ML SYR SUBCUT SCH ×2 (08:44→21:56)
[2020-05-15 12:00] VITALS: BP 107/66
[2020-05-15 13:08] LABS: BG BASE EXCESS 2.8 mmol/L (-2.0-2.0); BG CARBOXYHEMOGLOBIN 0.3 % (0.5-1.5); BG DEOXYHEMOGLOBIN 9.7 % (0.0-5.0); BG FRACTION INSPIRED OXYGEN 21; BG HCO3 ACT 26.6 mmol/L (22.0-26.0); BG METHEMOGLOBIN 0.3 % (0.0-1.5); BG OXYGEN SATURATION 90.2 % (92.0-98.5); BG OXYHEMOGLOBIN 89.7 % (94.0-97.0); BG PH 7.463 (7.350-7.450); BG SAMPLE SITE LEFT RADIAL; BG TOTAL HEMOGLOBIN 12.4 g/dL (12.0-18.0); BG VENT MODE ROOM AIR
[2020-05-15 16:11] VITALS: BP 91/64
[2020-05-15 20:00] VITALS: BP 97/73
[2020-05-15] MEDS: PANTOPRAZOLE SODIUM 40 MG/VIAL IV SCH (21:55)
[2020-05-16] VITALS: BP 114/68
[2020-05-16 04:00] VITALS: BP 147/67
[2020-05-16 08:00] VITALS: BP 119/45
[2020-05-16] MEDS: ASPIRIN 81MG TABLET PO SCH (09:53)
[2020-05-16] MEDS: CHOLECALCIFEROL (D3) 1000 UNIT TABLET PO SCH (09:53)
[2020-05-16] MEDS: ENOXAPARIN 100MG/ML SYR SUBCUT SCH ×2 (09:54→20:36)
[2020-05-16 12:00] VITALS: BP 121/74
[2020-05-16 16:00] VITALS: BP 93/72
[2020-05-16 20:00] VITALS: BP 90/68
[2020-05-16] MEDS: PANTOPRAZOLE SODIUM 40 MG/VIAL IV SCH (20:35)
[2020-05-16] MEDS: ACETAMINOPHEN 325MG TABLET PO PRN (20:39)
[2020-05-17] VITALS: BP 90/72
[2020-05-17 04:00] VITALS: BP 89/33
[2020-05-17] MEDS: DEXT 5%/0.45% NACL 1000ML 1,000 ML IV SCH (06:02)
[2020-05-17 08:00] VITALS: BP 104/82
[2020-05-17] MEDS: CHOLECALCIFEROL (D3) 1000 UNIT TABLET PO SCH (08:50)
[2020-05-17] MEDS: ASPIRIN 81MG TABLET PO SCH (08:50)
[2020-05-17] MEDS: ENOXAPARIN 100MG/ML SYR SUBCUT SCH ×2 (08:52→21:21)
[2020-05-17] MEDS: SODIUM CHLORIDE 0.9% 1,000 ML IV SCH ×2 (10:55→21:30)
[2020-05-17 12:00] VITALS: BP 102/71
[2020-05-17 13:52] LABS: T4 FREE 1.36 ng/dL (0.76-1.46)
[2020-05-17 16:00] VITALS: BP 101/72
[2020-05-17 20:00] VITALS: BP 109/71
[2020-05-17] MEDS: PANTOPRAZOLE SODIUM 40 MG/VIAL IV SCH (21:20)
[2020-05-17 23:51] LABS: BG BASE EXCESS -0.7 mmol/L (-2.0-2.0); BG CARBOXYHEMOGLOBIN 0.5 % (0.5-1.5); BG DEOXYHEMOGLOBIN 5.8 % (0.0-5.0); BG FRACTION INSPIRED OXYGEN 28; BG HCO3 ACT 22.8 mmol/L (22.0-26.0); BG METHEMOGLOBIN 0.1 % (0.0-1.5); BG OXYGEN SATURATION 94.2 % (92.0-98.5); BG OXYHEMOGLOBIN 93.6 % (94.0-97.0); BG PCO2 31.7 mmHg (35.0-45.0); BG PH 7.475 (7.350-7.450); BG PO2 68.4 mmHg (75.0-100.0); BG SAMPLE SITE RIGHT RADIAL; BG TOTAL HEMOGLOBIN 5.9 g/dL (12.0-18.0); BG VENT MODE NASAL CANNULA
[2020-05-18] VITALS (16 sets, daily range): BP systolic 103–154; BP diastolic 49–96
[2020-05-18 00:35] LABS: MEAN CORPUSCULAR HEMOGLOBIN 32.1 pg (28.0-32.0); MEAN CORPUSCULAR VOLUME 95.1 fL (81.0-99.0); MEAN PLATELET VOLUME 8.4 fl (7.4-10.4); RED BLOOD CELL COUNT 1.45 mill/uL (4.2-5.4); RED CELL DISTRIBUTION WIDTH 14.9 % (11.6-14.6)
[2020-05-18 00:46] LABS: HEMOGLOBIN. 4.6 g/dL (12.0-16.0)
[2020-05-18 00:47] LABS: HEMATOCRIT. 13.8 % (36.0-48.0)
[2020-05-18] MEDS: PANTOPRAZOLE SODIUM 40 MG/VIAL IV SCH (08:18)
[2020-05-18] MEDS: ASPIRIN 81MG TABLET PO SCH (08:18)
[2020-05-18] MEDS: CHOLECALCIFEROL (D3) 1000 UNIT TABLET PO SCH ×2 (08:18→12:01)
[2020-05-18] MEDS: ENOXAPARIN 100MG/ML SYR SUBCUT SCH (08:18)
[2020-05-18 08:47] LABS: BASOPHILS % 0.2 % (0.0-2.0); EOSINOPHILS % 0.5 % (0.0-5.0); HEMATOCRIT. 21.5 % (36.0-48.0); HEMOGLOBIN. 7.3 g/dL (12.0-16.0); LYMPHOCYTES % 8.1 % (20.0-50.0); MEAN CORPUSCULAR HEMOGLOBIN 31.6 pg (28.0-32.0); MEAN CORPUSCULAR VOLUME 93.3 fL (81.0-99.0); MEAN PLATELET VOLUME 9.5 fl (7.4-10.4); MONOCYTES % 8.8 % (2.0-8.0); NEUTROPHILS % 82.4 % (40.0-76.0); PLATELET 213 x1000/uL (130-400); RED CELL DISTRIBUTION WIDTH 14.9 % (11.6-14.6)
[2020-05-18 09:49] LABS: NUCLEATED RED BLOOD CELLS 2 /100 WBC; PLATELET ESTIMATE NORMAL
[2020-05-18 09:50] LABS: PLATELET 270 x1000/uL (130-400)
[2020-05-18] MEDS: SODIUM CHLORIDE 0.9% 1,000 ML IV SCH ×2 (12:01→23:30)
[2020-05-18 18:14] LABS: BG BASE EXCESS -1.3 mmol/L (-2.0-2.0); BG CARBOXYHEMOGLOBIN 0.4 % (0.5-1.5); BG FRACTION INSPIRED OXYGEN 65; BG HCO3 ACT 22.6 mmol/L (22.0-26.0); BG METHEMOGLOBIN 0.5 % (0.0-1.5); BG OXYHEMOGLOBIN 98.1 % (94.0-97.0); BG PCO2 33.6 mmHg (35.0-45.0); BG PH 7.446 (7.350-7.450); BG PO2 191.8 mmHg (75.0-100.0); BG TOTAL HEMOGLOBIN 6.7 g/dL (12.0-18.0); BG TOTAL RESPIRATORY RATE 34 b/min; BG VENT MODE MASK - BIPAP
[2020-05-19] VITALS (11 sets, daily range): BP systolic 104–116; BP diastolic 56–83
[2020-05-19] MEDS: METOPROLOL TARTRATE 25MG TABLET PO SCH ×3 (01:06→21:15)
[2020-05-19] MEDS: PANTOPRAZOLE SODIUM 40 MG/VIAL IV SCH ×3 (01:07→21:15)
[2020-05-19 06:54] LABS: D-DIMER 1.53 mg/L FEU (<0.50); PARTIAL THROMBOPLASTIN TIME 29.1 sec (23.4-31.0); PROTHROMBIN TIME 10.6 sec (9.6-11.0)
[2020-05-19 06:57] LABS: CHLORIDE 107 mEq/L (98-107)
[2020-05-19 07:09] LABS: TOTAL IRON BINDING CAPACITY 134 ug/dL (250-450)
[2020-05-19 07:15] LABS: FOLIC ACID (FOLATE) SERUM 3.3 ng/mL (>5.38)
[2020-05-19 08:03] LABS: MEAN CORPUSCULAR HEMOGLOBIN 31.8 pg (28.0-32.0); MEAN CORPUSCULAR VOLUME 89.9 fL (81.0-99.0); MEAN PLATELET VOLUME 8.4 fl (7.4-10.4); PLATELET 201 x1000/uL (130-400); RED BLOOD CELL COUNT 2.25 mill/uL (4.2-5.4); RED CELL DISTRIBUTION WIDTH 15.8 % (11.6-14.6)
[2020-05-19 08:19] LABS: HEMATOCRIT. 20.2 % (36.0-48.0); HEMOGLOBIN. 7.2 g/dL (12.0-16.0)
[2020-05-19] MEDS ORDERED: DOCUSATE SODIUM 100MG CAPSULE PO SCH (09:00)
[2020-05-19] MEDS: DOCUSATE SODIUM 100MG CAPSULE PO SCH (10:38)
[2020-05-19] MEDS: FERROUS SULFATE 325MG TABLET PO SCH ×2 (10:38→16:52)
[2020-05-19] MEDS: ASCORBIC ACID 500 MG TABLET PO SCH (10:39)
[2020-05-19] MEDS: FOLIC ACID 1MG TABLET PO SCH (10:43)
[2020-05-19] MEDS: CHOLECALCIFEROL (D3) 1000 UNIT TABLET PO SCH (10:43)
[2020-05-19] MEDS: SODIUM CHLORIDE 0.9% 1,000 ML IV SCH (14:25)
[2020-05-19 20:52] LABS: NUCLEATED RED BLOOD CELLS 4 /100 WBC; PLATELET ESTIMATE NORMAL
[2020-05-20] VITALS: BP 110/66
[2020-05-20] MEDS: SODIUM CHLORIDE 0.9% 1,000 ML IV SCH ×2 (00:36→13:47)
[2020-05-20 04:00] VITALS: BP 116/67
[2020-05-20 06:47] LABS: HEMATOCRIT. 23.9 % (36.0-48.0); HEMOGLOBIN. 8.2 g/dL (12.0-16.0); MEAN CORPUSCULAR HEMOGLOBIN 31.1 pg (28.0-32.0); MEAN PLATELET VOLUME 7.6 fl (7.4-10.4); PLATELET 226 x1000/uL (130-400); RED BLOOD CELL COUNT 2.63 mill/uL (4.2-5.4); RED CELL DISTRIBUTION WIDTH 15.6 % (11.6-14.6)
[2020-05-20 08:00] VITALS: BP 133/80
[2020-05-20] MEDS: DOCUSATE SODIUM 100MG CAPSULE PO SCH (09:42)
[2020-05-20] MEDS: PANTOPRAZOLE SODIUM 40 MG/VIAL IV SCH ×2 (09:42→21:13)
[2020-05-20] MEDS: ASCORBIC ACID 500 MG TABLET PO SCH (09:43)
[2020-05-20] MEDS: FOLIC ACID 1MG TABLET PO SCH (09:43)
[2020-05-20] MEDS: FERROUS SULFATE 325MG TABLET PO SCH ×2 (09:43→17:09)
[2020-05-20] MEDS: CHOLECALCIFEROL (D3) 1000 UNIT TABLET PO SCH (09:43)
[2020-05-20] MEDS: METOPROLOL TARTRATE 25MG TABLET PO SCH ×2 (09:43→21:13)
[2020-05-20 12:00] VITALS: BP 114/69
[2020-05-20 15:18] LABS: NUCLEATED RED BLOOD CELLS 6 /100 WBC; PLATELET ESTIMATE NORMAL
[2020-05-20 16:00] VITALS: BP 113/67
[2020-05-20 20:00] VITALS: BP 108/61
[2020-05-21] VITALS (7 sets, daily range): BP systolic 105–127; BP diastolic 55–80
[2020-05-21] MEDS: SODIUM CHLORIDE 0.9% 1,000 ML IV SCH ×2 (01:35→14:00)
[2020-05-21 06:44] LABS: CHLORIDE 107 mEq/L (98-107)
[2020-05-21 06:51] LABS: HEMATOCRIT. 23.8 % (36.0-48.0); HEMOGLOBIN. 8.2 g/dL (12.0-16.0); MEAN CORPUSCULAR VOLUME 90.2 fL (81.0-99.0); MEAN PLATELET VOLUME 7.4 fl (7.4-10.4); PLATELET 291 x1000/uL (130-400); RED BLOOD CELL COUNT 2.64 mill/uL (4.2-5.4); RED CELL DISTRIBUTION WIDTH 15.1 % (11.6-14.6)
[2020-05-21] MEDS: PANTOPRAZOLE SODIUM 40 MG/VIAL IV SCH ×2 (08:57→22:03)
[2020-05-21] MEDS: FERROUS SULFATE 325MG TABLET PO SCH ×2 (08:57→17:24)
[2020-05-21] MEDS: ASCORBIC ACID 500 MG TABLET PO SCH (08:57)
[2020-05-21] MEDS: FOLIC ACID 1MG TABLET PO SCH (08:57)
[2020-05-21] MEDS: CHOLECALCIFEROL (D3) 1000 UNIT TABLET PO SCH (08:57)
[2020-05-21] MEDS: METOPROLOL TARTRATE 25MG TABLET PO SCH ×2 (08:58→22:04)
[2020-05-21] MEDS: DOCUSATE SODIUM 100MG CAPSULE PO SCH (08:59)
[2020-05-21] MEDS ORDERED: POTASSIUM CHLORIDE 20MEQ TABLET SR PO ONE (09:15)
[2020-05-21] MEDS ORDERED: POTASSIUM CHLORIDE 20MEQ/PACKET PO NR (09:30)
[2020-05-21 14:37] LABS: NUCLEATED RED BLOOD CELLS 3 /100 WBC; PLATELET ESTIMATE NORMAL
[2020-05-21] MEDS: NYSTATIN POWDER 15GM TOP SCH (22:04)
[2020-05-22] VITALS (8 sets, daily range): BP systolic 109–142; BP diastolic 37–87
[2020-05-22] MEDS: SODIUM CHLORIDE 0.9% 1,000 ML IV SCH ×2 (02:00→12:48)
[2020-05-22 06:50] LABS: HEMATOCRIT. 24.8 % (36.0-48.0); HEMOGLOBIN. 8.7 g/dL (12.0-16.0); MEAN CORPUSCULAR HEMOGLOBIN 31.8 pg (28.0-32.0); MEAN CORPUSCULAR VOLUME 91.1 fL (81.0-99.0); MEAN PLATELET VOLUME 7.2 fl (7.4-10.4); PLATELET 349 x1000/uL (130-400); RED BLOOD CELL COUNT 2.72 mill/uL (4.2-5.4); RED CELL DISTRIBUTION WIDTH 15.1 % (11.6-14.6)
[2020-05-22 07:14] LABS: CHLORIDE 106 mEq/L (98-107)
[2020-05-22] MEDS: FOLIC ACID 1MG TABLET PO SCH (08:45)
[2020-05-22] MEDS: CHOLECALCIFEROL (D3) 1000 UNIT TABLET PO SCH (08:45)
[2020-05-22] MEDS: FERROUS SULFATE 325MG TABLET PO SCH ×2 (08:45→16:53)
[2020-05-22] MEDS: NYSTATIN POWDER 15GM TOP SCH ×2 (08:45→16:53)
[2020-05-22] MEDS: PANTOPRAZOLE SODIUM 40 MG/VIAL IV SCH ×2 (08:45→20:37)
[2020-05-22] MEDS: ASCORBIC ACID 500 MG TABLET PO SCH (08:45)
[2020-05-22] MEDS: DOCUSATE SODIUM 100MG CAPSULE PO SCH (08:46)
[2020-05-22] MEDS: METOPROLOL TARTRATE 25MG TABLET PO SCH ×2 (08:46→20:37)
[2020-05-22] MEDS ORDERED: POTASSIUM CHLORIDE 20MEQ TABLET SR PO NR (12:00)
[2020-05-23] VITALS (7 sets, daily range): BP systolic 117–141; BP diastolic 73–87
[2020-05-23] MEDS: SODIUM CHLORIDE 0.9% 1,000 ML IV SCH ×2 (03:22→16:51)
[2020-05-23 06:09] LABS: HEMATOCRIT. 26.6 % (36.0-48.0); HEMOGLOBIN. 9.1 g/dL (12.0-16.0); MEAN CORPUSCULAR HEMOGLOBIN 31.7 pg (28.0-32.0); MEAN CORPUSCULAR VOLUME 92.3 fL (81.0-99.0); MEAN PLATELET VOLUME 6.7 fl (7.4-10.4); PLATELET 404 x1000/uL (130-400); RED BLOOD CELL COUNT 2.88 mill/uL (4.2-5.4); RED CELL DISTRIBUTION WIDTH 15.6 % (11.6-14.6)
[2020-05-23 06:17] LABS: CHLORIDE 108 mEq/L (98-107)
[2020-05-23] MEDS: DOCUSATE SODIUM 100MG CAPSULE PO SCH (09:07)
[2020-05-23] MEDS: METOPROLOL TARTRATE 25MG TABLET PO SCH ×2 (09:08→20:36)
[2020-05-23] MEDS: NYSTATIN POWDER 15GM TOP SCH ×2 (09:08→16:52)
[2020-05-23] MEDS: CHOLECALCIFEROL (D3) 1000 UNIT TABLET PO SCH (09:08)
[2020-05-23] MEDS: FOLIC ACID 1MG TABLET PO SCH (09:08)
[2020-05-23] MEDS: FERROUS SULFATE 325MG TABLET PO SCH ×2 (09:08→16:50)
[2020-05-23] MEDS: ASCORBIC ACID 500 MG TABLET PO SCH (09:08)
[2020-05-23] MEDS: PANTOPRAZOLE SODIUM 40 MG/VIAL IV SCH ×2 (09:09→20:36)
[2020-05-23] MEDS ORDERED: POTASSIUM CHLORIDE 20MEQ TABLET SR PO SCH (10:00)
[2020-05-23 14:13] LABS: PLATELET ESTIMATE NORMAL
[2020-05-23 15:50] LABS: PLATELET ESTIMATE SLIGHTLY INCREASED
[2020-05-24] MEDS: SODIUM CHLORIDE 0.9% 1,000 ML IV SCH (04:52)
[2020-05-24 08:00] VITALS: BP 131/80
[2020-05-24] MEDS: CHOLECALCIFEROL (D3) 1000 UNIT TABLET PO SCH (08:42)
[2020-05-24] MEDS: DOCUSATE SODIUM 100MG CAPSULE PO SCH (08:42)
[2020-05-24] MEDS: PANTOPRAZOLE SODIUM 40 MG/VIAL IV SCH ×2 (08:42→21:07)
[2020-05-24] MEDS: FERROUS SULFATE 325MG TABLET PO SCH ×2 (08:42→16:33)
[2020-05-24] MEDS: FOLIC ACID 1MG TABLET PO SCH (08:43)
[2020-05-24] MEDS: ASCORBIC ACID 500 MG TABLET PO SCH (08:43)
[2020-05-24] MEDS: METOPROLOL TARTRATE 25MG TABLET PO SCH ×2 (08:44→21:11)
[2020-05-24] MEDS: NYSTATIN POWDER 15GM TOP SCH ×2 (08:47→16:33)
[2020-05-24 12:00] VITALS: BP 130/78
[2020-05-24 16:00] VITALS: BP 128/85
[2020-05-24 20:00] VITALS: BP 132/54
[2020-05-25] VITALS: BP 111/71
[2020-05-25 04:00] VITALS: BP 120/70
[2020-05-25 08:00] VITALS: BP 105/65
[2020-05-25] MEDS: ASCORBIC ACID 500 MG TABLET PO SCH (09:01)
[2020-05-25] MEDS: FERROUS SULFATE 325MG TABLET PO SCH ×2 (09:01→17:17)
[2020-05-25] MEDS: DOCUSATE SODIUM 100MG CAPSULE PO SCH (09:01)
[2020-05-25] MEDS: FOLIC ACID 1MG TABLET PO SCH (09:01)
[2020-05-25] MEDS: CHOLECALCIFEROL (D3) 1000 UNIT TABLET PO SCH (09:01)
[2020-05-25] MEDS: NYSTATIN POWDER 15GM TOP SCH ×2 (09:02→17:17)
[2020-05-25] MEDS: METOPROLOL TARTRATE 25MG TABLET PO SCH ×2 (09:02→21:38)
[2020-05-25] MEDS: PANTOPRAZOLE SODIUM 40 MG/VIAL IV SCH ×2 (09:02→21:37)
[2020-05-25 12:00] VITALS: BP 105/78
[2020-05-25 16:00] VITALS: BP 109/64
[2020-05-25 20:00] VITALS: BP 150/83
[2020-05-26] VITALS: BP 130/71
[2020-05-26 04:00] VITALS: BP 129/74
[2020-05-26 08:00] VITALS: BP 124/86
[2020-05-26] MEDS: FOLIC ACID 1MG TABLET PO SCH (08:38)
[2020-05-26] MEDS: FERROUS SULFATE 325MG TABLET PO SCH (08:39)
[2020-05-26] MEDS: PANTOPRAZOLE SODIUM 40 MG/VIAL IV SCH (08:39)
[2020-05-26] MEDS: ASCORBIC ACID 500 MG TABLET PO SCH (08:39)
[2020-05-26] MEDS: DOCUSATE SODIUM 100MG CAPSULE PO SCH (08:39)
[2020-05-26] MEDS: CHOLECALCIFEROL (D3) 1000 UNIT TABLET PO SCH (08:39)
[2020-05-26] MEDS: METOPROLOL TARTRATE 25MG TABLET PO SCH (08:43)
[2020-05-26] MEDS: NYSTATIN POWDER 15GM TOP SCH (08:44)
[2020-05-26 10:00] VITALS: BP 126/85
[2020-05-26 10:40] VITALS: BP 126/80
[2020-05-26 12:00] VITALS: BP 132/92
== END 2020-05-26 12:30 | disposition home or self-care (01) | DRG 720 ==
LOC: ER 12:22 → MICUSO 16:40 → EDBEDREQ 16:56 → EDBEDREQTM 16:56 → EDBEDREQSVC 16:56 → MICUNO 04-29 20:58 → MICUSO 04-30 04:58 → MICUNO 04-30 08:49 → 7EST 05-08 11:40 → 5EST 05-13 14:00
PROVIDERS: ADMIT Hospitalist; ATTEND Hospitalist
PROC: 5A1955Z Respiratory Ventilation, Greater than 96 Consecutive Hours (ICD-10-PCS; principal; 2020-04-27)
PROC: 02H633Z Insertion of Infusion Device into Right Atrium, Percutaneous Approach (ICD-10-PCS; 2020-04-27)
PROC: B548ZZA Ultrasonography of Superior Vena Cava, Guidance (ICD-10-PCS; 2020-04-27)
PROC: 0BH17EZ Insertion of Endotracheal Airway into Trachea, Via Natural or Artificial Opening (ICD-10-PCS; 2020-04-27)
PROC: 30233M1 Transfusion of Nonautologous Plasma Cryoprecipitate into Peripheral Vein, Percutaneous Approach (ICD-10-PCS; 2020-04-30)
PROC: XW13325 Transfusion of Convalescent Plasma (Nonautologous) into Peripheral Vein, Percutaneous Approach, New Technology Group 5 (ICD-10-PCS; 2020-05-04)
PROC: 30233N1 Transfusion of Nonautologous Red Blood Cells into Peripheral Vein, Percutaneous Approach (ICD-10-PCS; 2020-05-18)
PROC: 5A09457 Assistance with Respiratory Ventilation, 24-96 Consecutive Hours, Continuous Positive Airway Pressure (ICD-10-PCS; 2020-05-18)
DX: A41.89 Other specified sepsis (principal); U07.1 COVID-19; J12.89 Other viral pneumonia; N17.0 Acute kidney failure with tubular necrosis; N39.0 Urinary tract infection, site not specified; G92 Toxic encephalopathy; I21.A1 Myocardial infarction type 2; D72.810 Lymphocytopenia; G82.50 Quadriplegia, unspecified; F17.200 Nicotine dependence, unspecified, uncomplicated; E87.2 Acidosis; E88.09 Other disorders of plasma-protein metabolism, not elsewhere classified; R74.01 Elevation of levels of liver transaminase levels; G93.1 Anoxic brain damage, not elsewhere classified; A41.51 Sepsis due to Escherichia coli [E. coli]; K92.2 Gastrointestinal hemorrhage, unspecified; D62 Acute posthemorrhagic anemia; E46 Unspecified protein-calorie malnutrition; K80.20 Calculus of gallbladder without cholecystitis without obstruction; Z99.11 Dependence on respirator [ventilator] status; Z68.32 Body mass index [BMI] 32.0-32.9, adult; J96.01 Acute respiratory failure with hypoxia; R65.20 Severe sepsis without septic shock
CPT/HCPCS: 36415; 36600; 71045; 71250; 76700; 80048; 80053; 80061; 80076; 81003; 82375; 82550; 82607; 82728; 82746; 82805; 82962; 83540; 83550; 83605; 83615; 83735; 83880; 84145; 84439; 84443; 84481; 84484; 85025; 85027; 85044; 85379; 85384; 86140; 86850; 86900; 86920; 86927; 87077; 87186; 87426; 87635; 93005; 93306; 93970; 94002; 94003; 94640; 94660; 96374; 97110; 97162; 97166; 97530; 97535; 99291; A6261; C9113; J0330; J0456; J0696; J1100; J1650; J1940; J2060; J2250; J2405; J2543; J3010; J3490; J7030; J7040; J7042; J7050; J7060; J7070; P9016; P9017; P9021; A4315